=== PATIENT | female | born 1985 | race African-American/Black ===

== ENCOUNTER → 2022-07-28 | Outpatient (CLI) | payer BC ==
[2022-07-28 15:53] LABS: Chol/HDL Ratio 3.51 Ratio; LDL Cholesterol,Calculated 133.3 mg/dL (0.0-131.0); VLDL Calculation 10.36 mg/dL (5.00-40.00)
== END | disposition home or self-care (01) ==
LOC: LABWHC1 08:43
DX: R79.89 Other specified abnormal findings of blood chemistry (principal)
CPT/HCPCS: 36415; 80061

== ENCOUNTER → 2022-07-29 | Outpatient (CLI) | payer BC | END | disposition home or self-care (01) | LOC: LABWHC1 16:10 | PROVIDERS: ATTEND Family Medicine | DX: N89.8 Other specified noninflammatory disorders of vagina (principal) | CPT/HCPCS: 87086 ==

== ENCOUNTER → 2023-11-30 | Outpatient (CLI) | payer BC ==
[2023-11-30 15:49] VITALS: BP 117/77; PULSE 62; RESP 16; TEMP 98.4
--- NOTE | 2023-11-30 16:12 | P.SLEEP ---
History of Present Illness DATE: 11/30/2023 CONSULTATION/NEW PATIENT EVALUATION HISTORY OF PRESENT ILLNESS/SLEEP-WAKE EVALUATION: 37-year-old lady had been e valuated in the sleep center for possible obstructive sleep apnea hypopnea syndrome. SLEEP SCHEDULE: Usually sleep schedule from 10:30 PM to 7 AM on weekdays and from 11 PM to 7 AM on weekend. FALLING ASLEEP: Patient has difficulties with falling asleep every night. DURING SLEEP: Patient snores and wakes up from sleep 3 times with nocturia, dry mouth, sweating. No history of hypnogogical hallucinations, sleep paralysis, or cataplexy. DURING THE DAY/WAKE STATE: During the day patient has difficulties to pay attention, has problems with memory, concentration, irritability, depression, anxiety. [place] sleepiness scale is 4. Patient does not take naps. PAST MEDICAL HISTORY: Hypothyroidism, hypertension, ectopic . PAST SURGICAL HISTORY: Salpingectomy. MEDICATIONS: Please see below. SOCIAL HISTORY: Please see below. FAMILY HISTORY: Please see below. REVIEW OF SYSTEMS: Difficulties to initiate sleep, multiple awakenings from sleep. No fevers. No double vision. No recent chest pain. No shortness of breath. No abdominal pain. No bleeding episodes. No blood in urine. No seizure episodes. PHYSICAL EXAMINATION: GENERAL: A pleasant patient without any distress. VITAL SIGNS: Please see below, weight 180 pounds, BMI 28.6. HEENT: PERRLA, EOMI. Evaluation of oropharynx showed tongue protrudes midline, low position of soft palate Mallampati 4. NECK: Supple. No JVD. Thyroid is not palpable. 14.5 inches in circumference. LUNGS: Clear to percussion and to auscultation. Good air exchange. No wheezing or rhonchi. HEART: S1, S2 regular. No murmurs, gallops or rubs. ABDOMEN: Soft and nontender. Bowel sounds are present. No organomegaly appreciated. EXTREMITIES: No clubbing or cyanosis. FOREST ECOLOGIST: Awake, alert, and oriented x3. Cranial nerves 2 to 7 intact. There is no fasciculation or atrophy noted. No focal deficits observed. ASSESSMENT: 1. Snoring, multiple awakenings from sleep, extremely low position of soft palate Mallampati 4. Obstructive sleep apnea hypopnea syndrome. 2. Hypertension. 3. Insomnia. 4. Hypothyroidism. 5 history of ectopic . 6 . Status post salpingectomy. PLAN: 1. Polysomnography for evaluation of patient's breathing during sleep. 2. Following plan after reading sleep study. 3. Preferable position during sleep on the side. 4. No driving if patient feels any sleepiness. Patient is aware of civil and criminal liability for unsafe driving. 5. Sleep hygiene with regular sleep time for at least 7.5-8 hours. 6. Watching weight. Thank you very much for referring this patient for consultation. Sincerely, Xu Mcbride MD, PhD, FAASM. Diplomat of [employer], Sleep Medicine Board by [employer] Of [facility] Past Medical History Past Medical History: Hypertension, Thyroid Disorder History of Any Multi-Drug Resistant Organisms: None Reported Additional Past Surgical History / Comment(s): myomectomy, salpingectomy, laparoscopy Past Anesthesia/Blood Transfusion Reactions: No Reported Reaction Past Psychological History: Anxiety, Depression Smoking Status: Never smoker Past Alcohol Use History: None Reported Past Drug Use History: None Reported Medications and Allergies Home Medications Medication Instructions Recorded Confirmed Type Escitalopram [Lexapro] 10 mg PO DAILY 11/30/23 11/30/23 History Labetalol [Trandate] 50 mg PO DAILY 11/30/23 11/30/23 History Levothyroxine Sodium 25 mcg PO DAILY 11/30/23 11/30/23 History Physical Exam Vitals: Vital Signs Temp Pulse Resp BP Pulse Ox 11/30/23 15:47 98.4 F 62 16 117/77 100 Intake and Output 11/30/23 11/30/23 11/30/23 06:59 14:59 22:59 Other: Weight 81.647 kg Sleep Note - Sleep Data ESS Total: 4 - Sleep Note Sleep Note: Temperature: 98.4 F Pulse Rate: 62 Respiratory Rate: 16 Blood Pressure: 117/77 SpO2: 100 Height: 5 ft 6.5 in Weight: 81.647 kg BMI: Neck Circumference: 14.5
== END ==
LOC: 3 N SLEEP 14:49
PROVIDERS: ATTEND Internal Medicine
DX: G47.33 Obstructive sleep apnea (adult) (pediatric) (principal); I10 Essential (primary) hypertension; G47.00 Insomnia, unspecified; E03.9 Hypothyroidism, unspecified; Z98.890 Other specified postprocedural states; Z90.89 Acquired absence of other organs; Z87.59 Personal history of other complications of pregnancy, childbirth and the puerperium; Z79.899 Other long term (current) drug therapy; Z79.890 Hormone replacement therapy
CPT/HCPCS: 99211

== ENCOUNTER 2023-12-28 19:50 | Outpatient (CLI) | payer BC ==
--- NOTE | 2024-01-28 11:58 | SLS ---
SLEEP STUDY PROCEDURE: Polysomnogram. CLINICAL: Polysomnography has been done for evaluation of the patient's breathing during sleep. DESCRIPTION OF PROCEDURE: The standard montage for clinical polysomnography included the electroencephalogram, the electroculogram, the mentalis surface electromyography and Lead II cardiography. The respiratory battery consisted of measurements of nasal/buccal air flow, pressure transducer measurements from nose, thoracic, and/or abdominal effort. Video monitoring has been done to check for any parasomnia events. Nocturnal oxyhemoglobin saturations were obtained by finger oximetry. RESULTS: During diagnostic polysomnography, recording done for 443.4 minutes. Latency to sleep onset was prolonged to 39.5 minutes. Sleep efficiency decreased to 82.6%. Sleep architecture showed stage 1 sleep was normal 7.7%, delta sleep was absent and REM sleep was normal 24.0%. Respiratory channel showed no apneas or hypopneas with total apnea-hypopnea index 0 and lowest oxygen level 96%. EMG did not show periodic limb movements. Heart rate in the range between 55 and 93, average 68. IMPRESSION: 1. No significant respiratory abnormalities have been documented, normal oxygenation during sleep. 2. No snoring has been documented. 3. No periodic limb movements have been documented. 4. Long sleep latency may indicate insomnia, but could be related to first night adaptation response. 5. Please see other impressions from consultation. PLAN: 1. Sleep hygiene with regular time in bed for at least 8 hours. 2. No driving if feeling sleepiness. 3. I will see the patient for follow-up visit to explain results of the test and recommendations. Thank you very much for allowing me to participate in management of your patient. Sincerely, Xu Mcbride MD, PhD, FAASM Diplomat of [employer] Sleep Medicine Board of [employer] [facility] [place] MMODL / IJN: [id number] /
== END 2023-12-29 05:30 | disposition home or self-care (01) ==
LOC: 3 N SLEEP 19:50
PROVIDERS: ATTEND Internal Medicine
CPT/HCPCS: 95810

== ENCOUNTER → 2024-04-28 | Outpatient (CLI) | payer BC ==
[2024-04-28 15:43] VITALS: BP 126/78; PULSE 84; RESP 16; TEMP 98.3
--- NOTE | 2024-04-28 16:03 | P.PROGSL ---
Subjective DATE: 04/28/2024 FOLLOW UP VISIT. Patient returned to sleep center for follow-up visit to discuss results of sleep study and recommendations. I discussed results of sleep study with patient in details. No significant respiratory abnormalities have been documented. Normal oxygenation during sleep. No periodic limb movements have been documented. Long sleep latency was documented, which may indicate insomnia versus the first night the patient responds. [place] sleepiness scale is 3, which is normal. MEDICATIONS: Please see below. During physical exam: GENERAL: A pleasant patient without any distress. VITAL SIGNS: Please see below. HEENT: PERRLA, EOMI. NECK: Supple. No JVD. LUNGS: Clear to percussion and to auscultation. Good air exchange. No wheezing or rhonchi. HEART: S1, S2 regular. ABDOMEN: Soft and nontender. EXTREMITIES: No clubbing or cyanosis. SKETCH ARTIST: Awake, alert, and oriented x3. No focal deficit. Impressions: 1. No significant respiratory abnormalities during sleep have been documented, normal oxygenation during sleep. 2. No periodic limb movements have been documented. 3. Long sleep latency during sleep study may indicate insomnia. 4. Hypertension. 5. Hypothyroidism. 6. History of ectopic . 7. Status post salpingectomy. Plan: 1. I discussed with patient psychological techniques for treatment of insomnia including stimulus control, paradoxical intention, if necessary slightly decrease amount of time in bed, worried time. 2. Sleep hygiene with regular time in bed for at least 8 hours. 3. Watching and losing weight 4. Follow-up visit in 1 year if necessary. Thank you very much for allowing me to participate in the management of your patient. Xu Mcbride MD, PhD, FAASM. Diplomat of [place] [employer], Sleep Medicine Board by [employer] [facility] [place] cc: Gerson Ortega MD Objective - Vital Signs Vital Signs: Vital Signs Temp 98.3 F 04/28/24 15:36 Pulse 84 04/28/24 15:36 Resp 16 04/28/24 15:36 BP 126/78 04/28/24 15:36 Pulse Ox 99 04/28/24 15:36 FiO2 Intake & Output 04/27/24 04/28/24 04/28/24 18:59 06:59 18:59 Weight 92.986 kg Home Medications: Home Medications Medication Instructions Recorded Confirmed Type Escitalopram [Lexapro] 10 mg PO DAILY 11/30/23 04/28/24 History Labetalol [Trandate] 50 mg PO DAILY 11/30/23 11/30/23 History Levothyroxine Sodium 25 mcg PO DAILY 11/30/23 11/30/23 History Labetalol HCl 50 mg PO DAILY 04/28/24 04/28/24 History hydrOXYzine HCL 25 mg PO DAILY 04/28/24 04/28/24 History
== END ==
LOC: 3 N SLEEP 15:16
PROVIDERS: ATTEND Internal Medicine
DX: G47.33 Obstructive sleep apnea (adult) (pediatric) (principal); G47.00 Insomnia, unspecified; I10 Essential (primary) hypertension; E03.9 Hypothyroidism, unspecified; Z90.722 Acquired absence of ovaries, bilateral; Z79.890 Hormone replacement therapy; Z79.899 Other long term (current) drug therapy
CPT/HCPCS: 99212

== ENCOUNTER → 2024-07-05 | Outpatient (CLI) | payer BC ==
--- NOTE | 2024-07-05 08:14 | CT ---
EXAMINATION TYPE: CT brain wo con DATE OF EXAM: 07/05/2024 COMPARISON: None. CLINICAL INDICATION: Female, 38 years old with history of R51.9 headaches; PHH, HEADACHE TECHNIQUE: CT of the brain performed without contrast with sagittal and coronal reformats. CT DLP: 992.9 mGycm Automated exposure control for dose reduction was used. FINDINGS: There is no acute intracranial hemorrhage, mass effect, or midline shift identified. The ventricles and sulci are within normal limits in size. Garza-white matter differentiation is maintained. The glob es are intact and the visualized sinuses are clear. IMPRESSION: No acute intracranial hemorrhage or midline shift is seen. [facility], , 07/05/2024 8:11 AM
== END | disposition home or self-care (01) ==
LOC: RADCTMAIN 07:45
PROVIDERS: ATTEND Internal Medicine
DX: R51.9 Headache, unspecified (principal)
CPT/HCPCS: 70450

== ENCOUNTER → 2024-07-11 | Outpatient (CLI) | payer BC ==
--- NOTE | 2024-07-11 17:56 | CA ---
Exercise Stress Test Report Name: Soy Gross Exam Date: 07/11/2024 11:45 Exam Location: [facility] Stress Ht (in): 67 Wt (lb): 210 BSA: 2.06 Ordering Phys: Gerson Ortega MD Referring Phys: Gerson Ortega MD Technologist: dylon Pool Age: 38 Gender: F : 1985 Procedure CPT: Indications: R07.9 CHEST PAIN ICD-10 Codes: Patient History: Chest pain, hypertension and hyperlipidemia. Medications: SEE LIST,,, Meds past 24 hrs: Pretest Chest Pain: STRESS TEST Chidi Protocol Exercise Duration (min:sec): 06:[address] Depressions (mm): 0 Angina Score: Hanson Score: Resting HR (bpm): 71 Peak HR (bpm): 160 Resting BP (mmHg): 120 / 75 Peak BP (mmHg): 161 / 79 MPHR: 180 Target HR: 153 % MPHR: 89 METS: 7.1 Total Dose: Peak Dose: Atropine: Double Product: 42890 BP Response: Stress Termination: TARGET HR REACHED/MAX EXERTION Stress Symptoms: CHEST PAIN Stress Summary: The patient's target heart rate was achieved ECG ANALYSIS Resting ECG: Sinus rhythm. Normal conduction. No arrhythmias. Normal repolarization. Stress ECG: No ECG evidence of ischemia with exercise. CONCLUSIONS 1. Decreased exercise tolerance 2. Normal electrocardiographic response to exercise with no evidence of exercise induced ischemia 3. Chest discomfort during exercise of unclear etiology. Dr. Elizabeth Olvera MD (Electronically Signed) Final Date: 11 July 2024 17:55
== END | disposition home or self-care (01) ==
LOC: RADNMMAIN 11:14
PROVIDERS: ATTEND Internal Medicine
DX: I10 Essential (primary) hypertension (principal); E78.5 Hyperlipidemia, unspecified; R07.89 Other chest pain
CPT/HCPCS: 93017

== ENCOUNTER → 2024-07-26 | Outpatient (CLI) | payer BC ==
--- NOTE | 2024-07-26 08:26 | MM ---
Reason for Exam: Screening (asymptomatic). Baseline mammogram. Patient History: Menarche at age 14. Patient has no children. Last menstrual period: 06/30/2024 Risk Values: Meche 5 year model risk: 0.4%. NCI Lifetime model risk: 7.5%. Prior Study Comparison: Patient's first Mammogram. Tissue Density: The breasts are heterogeneously dense, which may obscure small masses. Findings: Analyzed By CAD. There is no suspicious group of microcalcifications or mass in either breast. Overall Assessment: Negative, BI-RAD 1 Management: Screening Mammogram of both breasts in 1 year. Some advise annual bilateral breast ultrasound surveillance in patients with background dense tissue. Patient should continue monthly self-breast exams. A clinical breast exam by your physician is recommended on an annual basis. This exam should not preclude additional follow-up of suspicious palpable abnormalities. Note on Meche scores and lifetime risk: 1. A Meche score greater than 3% is considered moderate risk. If this is the case, consider specialist referral to assess eligibility for a risk reducing agent. 2. If overall lifetime risk for the development of breast cancer is 20% or higher, the patient may qualify for future screening with alternating mammogram and breast MRI. [facility], , 07/26/2024 8:22 AM. Electronically signed and approved by: Shad Barr M.D.
== END | disposition home or self-care (01) ==
LOC: RADMAMWWP 07:35
PROVIDERS: ATTEND Obstetrics & Gynecology
DX: Z12.31 Encounter for screening mammogram for malignant neoplasm of breast (principal); R92.333 Mammographic heterogeneous density, bilateral breasts
CPT/HCPCS: 77063; 77067

== ENCOUNTER → 2024-12-07 | Outpatient (CLI) | payer BC ==
--- NOTE | 2024-12-07 11:26 | US ---
EXAMINATION TYPE: US gallbladder DATE OF EXAM: 12/07/2024 COMPARISON: NONE CLINICAL INDICATION: Female, 39 years abd pain with nausea TECHNIQUE: Grayscale and color Doppler imaging of the right upper quadrant was performed. FINDINGS: EXAM MEASUREMENTS: Liver Length: 17.5 cm Gallbladder Wall: 0.2 cm CBD: 0.4 cm Right Kidney: 9.4 x 3.7 x 4.7 cm Pancreas: wnl Liver: difficult to penetrate Gallbladder: wnl Evidence for sonographic Zaragoza's sign: no CBD: wnl Right Kidney: wnl IMPRESSION: Hepatic steatosis. [facility], , 12/07/2024 11:23 AM
== END | disposition home or self-care (01) ==
LOC: RADUSWWP 09:25
DX: K80.50 Calculus of bile duct without cholangitis or cholecystitis without obstruction (principal); K76.0 Fatty (change of) liver, not elsewhere classified
CPT/HCPCS: 76705